=== PATIENT | male | born 1980 | race Caucasian/White ===

== ENCOUNTER 2017-03-04 16:42 | Emergency (ER) | payer OTHER ==
[~2017-03-04] VITALS: Ht 177.8 cm; Wt 93.0 kg
[~2017-03-04 16:42] MED LIST: ALPR1TAB3 PO; ATOR-22 PO; CYCL10TA6 PO; GABA-113 PO; IBUP-1050 PO; LISI-787 PO; MORP15TA19 PO; OMEP40CA PO; OXYC-652 PO; SERT-234 PO
[2017-03-04 16:52] VITALS: TEMP 36.8; Ht 177.8 cm; Wt 93.0 kg
--- NOTE | 2017-03-04 17:29 | DIAGNOSTIC IMAGING REPORT ---
SINGLE VIEW CHEST CLINICAL HISTORY: Preoperative examination. FINDINGS: An AP, portable, upright chest radiograph is compared to study dated 07/14/2012. The examination is degraded by portable technique and patient rotation. The cardiomediastinal silhouette is normal for projection. The lungs and pleural spaces are clear. No pneumothorax is seen. The bony thorax is grossly intact. IMPRESSION: No active disease in the chest. Electronically signed by: Jerson Vincent M.D. 03/04/2017 5:27 PM Dictated Date/Time: 03/04/2017 5:27 PM
[2017-03-04 17:30] LABS: BASO % 0.7 %; BASO ABS # 0.05 K/uL (0-0.2); COMPLETE YES; HEMATOCRIT 41.1 % (42-52); IG% 1.2 %; LYMPH % 24.7 %; LYMPH ABS # 1.89 K/uL (1.2-3.4); MEAN CELL VOLUME 95.4 fL (80-100); MEAN CORPUSCULAR HGB CONC 33.6 g/dl (32-36); MEAN PLATELET VOLUME 9.4 fL (7.4-10.4); MONO % 10.2 %; NEUT % 61.2 %; PLATELET COUNT 217 K/uL (130-400); RED BLOOD COUNT 4.31 M/uL (4.7-6.1); WHITE BLOOD COUNT 7.66 K/uL (4.8-10.8)
[2017-03-04 17:37] LABS: URINE APPEARANCE CLEAR (CLEAR); URINE BILIRUBIN NEG (NEG); URINE COLOR YELLOW; URINE EPITHELIAL CELL AUTO 0-5 /lpf (0-5); URINE NITRITE NEG (NEG); URINE PH 6.5 (4.5-7.5); URINE SPECIFIC GRAVITY 1.013 (1.000-1.030); UROBILINOGEN NEG (NEG); ZZUR CULT IF INDIC CLEAN CATCH NO
--- NOTE | 2017-03-04 17:37 | DIAGNOSTIC IMAGING REPORT ---
CT SCAN OF THE ABDOMEN AND PELVIS WITHOUT IV CONTRAST CLINICAL HISTORY: Generalized abdominal pain. COMPARISON STUDY: No priors. TECHNIQUE: CT scan of the abdomen and pelvis is performed from the lung bases to the proximal femora. Images are reviewed in the axial, sagittal, and coronal planes. IV contrast was not administered for this examination as per the referring clinician. Note that the examination was performed in suboptimal fashion without oral and IV contrast. A dose lowering technique was utilized adhering to the principles of ALARA. CT DOSE: 605.82 mGy.cm FINDINGS: Lung bases: The heart is normal in size and without pericardial effusion. The lung bases are clear. Liver: The unenhanced liver is enlarged, measuring 22 cm in length. The liver demonstrates diffusely diminished attenuation consistent with hepatic steatosis. There is no intrahepatic biliary ductal dilatation. Gallbladder: Unremarkable. Spleen: Normal in size and attenuation. Pancreas: Unremarkable. Adrenal glands: Unremarkable. Kidneys: The unenhanced kidneys are normal in size and without hydronephrosis. There are no renal calculi identified. There is no evidence of contour deforming renal mass lesion. Abdominal vasculature: The abdominal aorta is normal in course and caliber. Bowel: The small bowel and colon are normal in course and caliber. The appendix is not identified and reported surgically absent. Peritoneum: There is no intraperitoneal free air or abdominal ascites. There is a small fat-containing umbilical hernia. Lymphadenopathy: None. Pelvic viscera: The bladder, prostate, and seminal vesicles are normal as visualized. Skeletal structures: No lytic or blastic lesions are seen. There are postoperative changes from L4 to S1 spinal fusion. IMPRESSION: There are no acute infectious or inflammatory findings in the abdomen or pelvis. Electronically signed by: Jerson Vincent M.D. 03/04/2017 5:35 PM Dictated Date/Time: 03/04/2017 5:30 PM
[2017-03-04 17:44] LABS: MANUAL MICROSCOPIC REQUIRED? NO; REVIEW REQ? NO
[2017-03-04 17:47] LABS: INR 1.1 (0.9-1.1); PARTIAL THROMBOPLASTIN RATIO 1.1; PROTHROMBIN TIME (PATIENT) 11.4 SECONDS (9.0-12.0)
[2017-03-04 17:56] LABS: ALKALINE PHOSPHATASE 69 U/L (45-117); ALT/SGPT 49 U/L (12-78); AST/SGOT 28 U/L (15-37); BLOOD UREA NITROGEN 9 mg/dl (7-18); BUN/CREATININE RATIO 10.8 (10-20); CALCIUM 9.2 mg/dl (8.5-10.1); CARBON DIOXIDE 28 mmol/L (21-32); CHLORIDE 103 mmol/L (98-107); CREATININE 0.84 mg/dl (0.60-1.40); GLUCOSE 122 mg/dl (70-99); POTASSIUM 4.2 mmol/L (3.5-5.1); SODIUM 138 mmol/L (136-145)
[2017-03-04] MEDS ORDERED: ALPR2TAB8 PO (18:52)
--- NOTE | 2017-03-04 18:53 | EMERGENCY ROOM VISIT NOTE ---
History Report prepared by Damon: Wilbre Chris Under the Supervision of: Dr. Demario Enriquez D.O. First contact with patient: 16:48 Chief Complaint: URINARY SYMPTOMS Stated Complaint: BEDWETTING-PRESSURE ON BLADDER-STOMACH PAIN History of Present Illness The patient is a 36 year old male who presents to the Emergency Room with complaints of worsening urinary symptoms for the past four or five months. The patient states that at night he is wetting the bed, pressure on his bladder, and when he is walking he can't control his bladder. The patient additionally states that he is sweating at night. The patient states that he had back surgery 4-5 months ago as well, and it was due to degenerative disc disease. He states that afterwards he went to [facility] for a month in November, and he lost 45 pounds in [facility] over a month, and then once he got out he gained 25 pounds when he got out. He additionally states that his abdomen is much harder than usual. The patient states that he has numbness in his legs and feet which is chronic, and he cannot close his hand which is chronic. Source of History: patient Onset: 4-5 months ago Position: other (global) Quality: other (urinary symptoms) Timing: worsening Note: Associated symptoms: wetting the bed, bladder pressure, unable to control bladder, and hard abdomen Review of Systems See HPI for pertinent positives & negatives. A total of 10 systems reviewed and were otherwise negative. Past Medical & Surgical Medical Problems: (1) Alcohol abuse (2) Alcoholism (3) Cannabis abuse (4) Depression (5) Homicidal ideation (6) Substance induced mood disorder Family History No pertinent family history Social History Smoking Status: Former Smoker Alcohol Use: heavy Marital Status: Housing Status: lives with family Occupation Status: disabled Current/Historical Medications Scheduled Atorvastatin (Lipitor), 20 MG PO DAILY Cyclobenzaprine Hcl (Flexeril), 10 MG PO QID Hctz/Lisinopril (Lisinopril/Hctz 10/12.5 Mg), 1 TAB PO DAILY Morphine Cont Rel (Ms Contin), 15 MG PO Q12 Omeprazole (Prilosec), 40 MG PO DAILY Oxycodone Ir (Roxicodone Ir), 10 MG PO BID Potassium Chloride (Micro-K Ext Rel), 10 MEQ PO DAILY Pregabalin (Lyrica), 100 MG PO BID Sertraline (Zoloft), 100 MG PO BID Trazodone Hcl (Trazodone), 100 MG PO HS Scheduled PRN Alprazolam (Alprazolam Er), 2 MG PO TID PRN for Pain Allergies Coded Allergies: No Known Allergies (Unverified , 05/29/16) Physical Exam Vital Signs Date Time Temp Pulse Resp B/P (MAP) Pulse Ox O2 Delivery O2 Flow Rate FiO2 03/04/17 19:13 98 20 130/67 96 03/04/17 18:36 101 18 117/80 94 03/04/17 16:52 36.8 116 18 142/83 96 Physical Exam CONSTITUTIONAL/VITAL SIGNS: Reviewed / noted above. GENERAL: Non-toxic in appearance. INTEGUMENTARY: Warm, dry, and [place]. HEAD: Normocephalic. EYES: without scleral icterus or trauma. ENT/OROPHARYNX: clear and moist. LYMPHADENOPATHY/NECK: Is supple without lymphadenopathy or meningismus. RESPIRATORY: Lungs clear and equal. CARDIOVASCULAR: Regular rate and rhythm. GI/ABDOMEN: Mild tenderness to palpation of the lower abdomen greatest in the suprapubic area. Soft. No organomegaly or pulsatile mass. No rebound or guarding. Normal bowel sounds. EXTREMITIES: Warm and well perfused. BACK: No CVA tenderness. NEUROLOGICAL: Intact without focal deficits. PSYCHIATRIC: normal affect. MUSCULOSKELETAL: Normally developed with good muscle tone. Medical Decision & Procedures ER Provider Diagnostic Interpretation: Radiology results as stated below per my review and radiologist interpretation: SINGLE VIEW CHEST CLINICAL HISTORY: Preoperative examination. FINDINGS: An AP, portable, upright chest radiograph is compared to study dated 07/14/2012. The examination is degraded by portable technique and patient rotation. The cardiomediastinal silhouette is normal for projection. The lungs and pleural spaces are clear. No pneumothorax is seen. The bony thorax is grossly intact. IMPRESSION: No active disease in the chest. Electronically signed by: Jerson Vincent M.D. 03/04/2017 5:27 PM Dictated Date/Time: 03/04/2017 5:[address] SCAN OF THE ABDOMEN AND PELVIS WITHOUT IV CONTRAST CLINICAL HISTORY: Generalized abdominal pain. COMPARISON STUDY: No priors. TECHNIQUE: CT scan of the abdomen and pelvis is performed from the lung bases to the proximal femora. Images are reviewed in the axial, sagittal, and coronal planes. IV contrast was not administered for this examination as per the referring clinician. Note that the examination was performed in suboptimal fashion without oral and IV contrast. A dose lowering technique was utilized adhering to the principles of ALARA. CT DOSE: 605.82 mGy.cm FINDINGS: Lung bases: The heart is normal in size and without pericardial effusion. The lung bases are clear. Liver: The unenhanced liver is enlarged, measuring 22 cm in length. The liver demonstrates diffusely diminished attenuation consistent with hepatic steatosis. There is no intrahepatic biliary ductal dilatation. Gallbladder: Unremarkable. Spleen: Normal in size and attenuation. Pancreas: Unremarkable. Adrenal glands: Unremarkable. Kidneys: The unenhanced kidneys are normal in size and without hydronephrosis. There are no renal calculi identified. There is no evidence of contour deforming renal mass lesion. Abdominal vasculature: The abdominal aorta is normal in course and caliber. Bowel: The small bowel and colon are normal in course and caliber. The appendix is not identified and reported surgically absent. Peritoneum: There is no intraperitoneal free air or abdominal ascites. There is a small fat-containing umbilical hernia. Lymphadenopathy: None. Pelvic viscera: The bladder, prostate, and seminal vesicles are normal as visualized. Skeletal structures: No lytic or blastic lesions are seen. There are postoperative changes from L4 to S1 spinal fusion. IMPRESSION: There are no acute infectious or inflammatory findings in the abdomen or pelvis. Electronically signed by: Jerson Vincent M.D. 03/04/2017 5:35 PM Dictated Date/Time: 03/04/2017 5:30 PM Laboratory Results 03/04/17 17:20 Red Blood Count 4.31, Mean Corpuscular Volume 95.4, Mean Corpuscular Hemoglobin 32.0, Mean Corpuscular Hemoglobin Concent 33.6, Mean Platelet Volume 9.4, Neutrophils (%) (Auto) 61.2, Lymphocytes (%) (Auto) 24.7, Monocytes (%) (Auto) 10.2, Eosinophils (%) (Auto) 2.0, Basophils (%) (Auto) 0.7, Neutrophils # (Auto ) 4.70, Lymphocytes # (Auto) 1.89, Monocytes # (Auto) 0.78, Eosinophils # (Auto ) 0.15, Basophils # (Auto) 0.05 03/04/17 17:20 Test 03/04/17 17:05 03/04/17 17:20 Urine Color YELLOW Urine Appearance CLEAR (CLEAR) Urine pH 6.5 (4.5-7.5) Urine Specific [place] 1.013 (1.000-1.030) Urine Protein NEG (NEG) Urine Glucose (UA) NEG (NEG) Urine Ketones NEG (NEG) Urine Occult Blood NEG (NEG) Urine Nitrite NEG (NEG) Urine Bilirubin NEG (NEG) Urine Urobilinogen NEG (NEG) Urine Leukocyte Esterase NEG (NEG) Urine WBC (Auto) 0 /hpf (0-5) Urine RBC (Auto) 0-4 /hpf (0-4) Urine Hyaline Casts (Auto) 0 /lpf (0-5) Urine Epithelial Cells (Auto) 0-5 /lpf (0-5) Urine Bacteria (Auto) NEG (NEG) White Blood Count 7.66 K/uL (4.8-10.8) Red Blood Count 4.31 M/uL (4.7-6.1) Hemoglobin 13.8 g/dL (14.0-18.0) Hematocrit 41.1 % (42-52) Mean Corpuscular Volume 95.4 fL (80-100) Mean Corpuscular Hemoglobin 32.0 pg (25-34) Mean Corpuscular Hemoglobin Concent 33.6 g/dl (32-36) Platelet Count 217 K/uL (130-400) Mean Platelet Volume 9.4 fL (7.4-10.4) Neutrophils (%) (Auto) 61.2 % Lymphocytes (%) (Auto) 24.7 % Monocytes (%) (Auto) 10.2 % Eosinophils (%) (Auto) 2.0 % Basophils (%) (Auto) 0.7 % Neutrophils # (Auto) 4.70 K/uL (1.4-6.5) Lymphocytes # (Auto) 1.89 K/uL (1.2-3.4) Monocytes # (Auto) 0.78 K/uL (0.11-0.59) Eosinophils # (Auto) 0.15 K/uL (0-0.5) Basophils # (Auto) 0.05 K/uL (0-0.2) RDW Standard Deviation 47.9 fL (36.4-46.3) RDW Coefficient of Variation 13.7 % (11.5-14.5) Immature Granulocyte % (Auto) 1.2 % Immature Granulocyte # (Auto) 0.09 K/uL (0.00-0.02) Prothrombin Time 11.4 SECONDS (9.0-12.0) Prothromb Time International Ratio 1.1 (0.9-1.1) Activated Partial Thromboplast Time 29.2 SECONDS (21.0-31.0) Partial Thromboplastin Ratio 1.1 Anion Gap 7.0 mmol/L (3-11) Est Creatinine Clear Calc Drug Dose 137.9 ml/min Estimated GFR () 129.6 Estimated GFR (Non- 111.9 BUN/Creatinine Ratio 10.8 (10-20) Calcium Level 9.2 mg/dl (8.5-10.1) Total Bilirubin 0.3 mg/dl (0.2-1) Direct Bilirubin mg/dl (0-0.2) Aspartate Amino Transf (AST/SGOT) 28 U/L (15-37) Alanine Aminotransferase (ALT/SGPT) 49 U/L (12-78) Alkaline Phosphatase 69 U/L (45-117) Total Protein 7.6 gm/dl (6.4-8.2) Albumin 3.9 gm/dl (3.4-5.0) Lipase 112 U/L (73-393) Chemistry Specimen Hemolysis Laboratory results as stated above per my review. ED Course 1648: Previous medical records were reviewed. The patient was evaluated in room A9. A complete history and physical examination was performed. 1854: On reevaluation, the patient is feeling well. I discussed the results and findings with the patient. He verbalized agreement of the treatment plan. He was discharged home. Medical Decision Differential considered: pancreatitis, hepatitis, or acute cholecystitis, AAA, UTI, pyelonephritis, kidney stones, appendicitis, diverticulitis, shingles, bowel obstruction mesenteric ischemia, intussusception,hernia, testicular torsion. This is a 36-year-old male who presents to the ED with a chief complaint of suprapubic discomfort, lower abdominal pain and is called to controlling his urination. The patient states the symptoms started about 45 months ago. The patient states that his symptoms seem to be worsening. He also reports that he had lost about 40 pounds while he was in [facility] last month. The patient states that he on occasion cannot control his urination. He denies any other significant symptoms. His exam reveals some mild CVA tenderness on the back. He does have a recent history of back surgery and reports some chronic paresthesias in the lower extremities. His abdomen is soft with tenderness in the suprapubic area primarily but mildly in the left and right lower quadrants. The patient is in no distress. His vital signs show a tachycardia with a rate at 116. He is afebrile. Bracelet noted in the ankle from house arrest. Test results included a normal CT scan of the abdomen and pelvis, normal chest x -ray, CBC was normal, complete metabolic panel was normal, urine did not show infection. The patient was told the results the test. He did have a bladder scan after urination and this showed 266 mL. He was felt to be stable for discharge. I recommend PCP follow-up and possible referral to urology for follow-up as well. Medication Reconcilliation Current Medication List: was personally reviewed by me Blood Pressure Screening Patient's blood pressure: Normal blood pressure Impression Primary Impression: Symptoms involving urinary system Additional Impression: Lower abdominal pain Scribe Attestation The scribe's documentation has been prepared under my direction and personally reviewed by me in its entirety. I confirm that the note above accurately reflects all work, treatment, procedures, and medical decision making performed by me. Departure Information Dispostion Home / Self-Care Referrals Matteo Benavides D.O. (PCP) Forms HOME CARE DOCUMENTATION FORM, IMPORTANT VISIT INFORMATION Patient Instructions My [facility] Additional Instructions Follow-up with your doctor for further care and evaluation in 1-2 days. Return to the emergency department for worsening or new symptoms or any concerns. You have been examined and treated today on an emergency basis only. This is not a substitute for, or an effort to provide, complete comprehensive medical care. It is impossible to recognize and treat all injuries or illnesses in a single emergency department visit. It is therefore important that you follow up closely with your doctor. Call as soon as possible for an appointment. Problem Qualifiers
[2017-03-04] MEDS ORDERED: LSN/10125 PO (18:55)
[2017-03-04] MEDS ORDERED: MORP-157 PO (18:58)
[2017-03-04] MEDS ORDERED: OXYC1TAB3 PO (19:00)
[2017-03-04] MEDS ORDERED: POTA10CA28 PO (19:02)
[2017-03-04] MEDS ORDERED: PREG100C PO (19:04)
[2017-03-04] MEDS ORDERED: TRAZ100T29 PO (19:06)
[2017-03-04 19:13] VITALS: BP 130/67; PULSE 98; O2SAT 96
== END 2017-03-04 19:14 | disposition home or self-care (01) ==
LOC: C.EDB 16:43 → C.EDA 19:14
DX: N39.0 Urinary tract infection, site not specified (principal); R10.30 Lower abdominal pain, unspecified; R20.2 Paresthesia of skin; F32.9 Major depressive disorder, single episode, unspecified; Z87.891 Personal history of nicotine dependence; Z79.899 Other long term (current) drug therapy